=== PATIENT | female | born 1965 | race Caucasian/White ===

== ENCOUNTER 2023-03-25 12:23 | Inpatient (IN) | payer OTHER ==
[~2023-03-25] VITALS: Ht 177.8 cm; Wt 95.5 kg
[2023-03-25] MEDS ORDERED: iohexol 350MG/ML 100ml bottle IV ONE (12:49)
[2023-03-25 13:02] LABS: BASOPHILS % (AUTO) 0.6 % (0-1); EOSINOPHILS # (AUTO) 0.1 X10'3 (0-0.9); EOSINOPHILS % (AUTO) 1.4 % (0-6); HEMATOCRIT 41.6 % (35.0-45.0); HEMOGLOBIN 13.7 g/dl (12.0-16.0); LYMPHOCYTES % (AUTO) 31.5 % (21-51); MEAN CORPUSCULAR HEMOGLOBIN 28.8 PG (27.0-31.0); MEAN CORPUSCULAR HGB CONC 32.9 g/dL (33.0-36.5); MEAN CORPUSCULAR VOLUME 87.5 FL (78-98); MEAN PLATELET VOLUME 7.5 FL (7.4-10.4); MONOCYTES # (AUTO) 0.3 X10'3 (0-0.9); MONOCYTES % (AUTO) 4.7 % (2-12); NEUTROPHILS # (AUTO) 3.9 X10'3 (1.8-7.7); NEUTROPHILS % (AUTO) 61.8 % (42-75); PLATELET COUNT 277 X10'3 (140-440); RED BLOOD COUNT 4.75 X10'6 (4.20-5.60); WHITE BLOOD COUNT 6.3 X10'3 (4.5-11.0)
[2023-03-25 13:15] LABS: ALANINE AMINOTRANSFERASE 21 U/L (12-78); ALKALINE PHOSPHATASE 121 IU/L (46-116); ANION GAP 6 (8-16); ASPARTATE AMINO TRANSFERASE 13 U/L (10-37); BILIRUBIN,TOTAL 0.3 MG/DL (0.1-1.0); BLOOD UREA NITROGEN 14 MG/DL (7-18); BUN/CREATININE RATIO 20.6 (10.0-20.0); CHLORIDE 104 MMOL/L (99-107); CREATININE 0.68 MG/DL (0.40-0.90); GLUCOSE 117 MG/DL (70-104); SODIUM 137 MMOL/L (135-145); TOTAL CARBON DIOXIDE 27.5 MMOL/L (24-32); eCRCL 98 ML/MIN; eGFR 89 ML/MIN
[2023-03-25 13:19] LABS: APTT 30 SECONDS (22-32); PROTHROMBIN TIME 10.7 SECONDS (9.0-12.0)
[2023-03-25] MEDS ORDERED: aspirin 81mg tab.chew PO ONE (13:20)
[2023-03-25 13:21] LABS: PRO BRAIN NATRIURETIC PEPTIDE 140 PG/ML (0-125)
[2023-03-25] MEDS ORDERED: THY60T PO (13:45)
[2023-03-25] MEDS ORDERED: LIOT25TA12 PO (13:45)
[2023-03-25] MEDS ORDERED: CITA20TA28 PO (13:45)
[2023-03-25] MEDS ORDERED: potassium Cl 40MEQ/1/2NS 520ml 520 ML IV PRN (15:30)
[2023-03-25] MEDS ORDERED: acetaminophen 325mg tablet PO PRN ×2 (15:30)
[2023-03-25] MEDS ORDERED: mag hydrox/Alum hydrox/simeth 30ml oral suspension PO PRN (15:30)
[2023-03-25] MEDS ORDERED: magnesium 2GM in 50ml NS 50 ML IV PRN (15:30)
[2023-03-25] MEDS ORDERED: magnesium Cl slow-release 64mg tablet PO PRN (15:30)
[2023-03-25] MEDS ORDERED: magnesium hydroxide 30ml (MOM) UD suspension PO PRN (15:30)
[2023-03-25] MEDS ORDERED: magnesium 4gm in 100ml NS 100 ML IV PRN (15:30)
[2023-03-25] MEDS ORDERED: HYDROcodone/acetaminophen 5mg/325mg tablet PO PRN (15:30)
[2023-03-25] MEDS ORDERED: morphine 2 MG/ML inj. syringe IV PRN ×2 (15:30)
[2023-03-25] MEDS ORDERED: HYDROcodone/acetaminophen 10/325mg tab PO PRN (15:30)
[2023-03-25] MEDS ORDERED: ondansetron/PF 4mg/2ml inj IV PRN (15:30)
[2023-03-25] MEDS ORDERED: potassium Cl 20 mEq SR tablet PO PRN ×2 (15:30)
[2023-03-25] MEDS ORDERED: clopidogrel 300mg tablet PO ONE ×2 (15:55→16:35)
[2023-03-25] MEDS ORDERED: LIOT5TAB10 (16:41)
[2023-03-25] MEDS ORDERED: atorvastatin 20mg tablet PO ONE (18:15)
[2023-03-25] MEDS: atorvastatin 20mg tablet PO SCH (18:16)
[2023-03-25] MEDS: thyroid, pork 30mg tablet PO SCH (20:00)
[2023-03-25] MEDS ORDERED: enoxaparin 40mg/0.4ml syringe SQ SCH (20:00)
[2023-03-25] MEDS: docusate sod 100mg capsule PO SCH (20:00)
[2023-03-25] MEDS: K and/or MAG REPLACEMENT MC SCH (20:00)
[2023-03-26 05:00] LABS: BASOPHILS # (AUTO) 0.1 X10'3 (0-0.2); BASOPHILS % (AUTO) 1.1 % (0-1); EOSINOPHILS # (AUTO) 0.1 X10'3 (0-0.9); EOSINOPHILS % (AUTO) 1.8 % (0-6); HEMATOCRIT 39.2 % (35.0-45.0); HEMOGLOBIN 13.1 g/dl (12.0-16.0); LYMPHOCYTES # (AUTO) 2.1 X10'3 (1.1-4.8); LYMPHOCYTES % (AUTO) 35.2 % (21-51); MEAN CORPUSCULAR HEMOGLOBIN 29.1 PG (27.0-31.0); MEAN CORPUSCULAR HGB CONC 33.5 g/dL (33.0-36.5); MEAN CORPUSCULAR VOLUME 86.9 FL (78-98); MEAN PLATELET VOLUME 7.1 FL (7.4-10.4); MONOCYTES # (AUTO) 0.3 X10'3 (0-0.9); MONOCYTES % (AUTO) 5.3 % (2-12); NEUTROPHILS # (AUTO) 3.4 X10'3 (1.8-7.7); NEUTROPHILS % (AUTO) 56.6 % (42-75); PLATELET COUNT 234 X10'3 (140-440); RED BLOOD COUNT 4.51 X10'6 (4.20-5.60)
[2023-03-26 05:26] LABS: PROTHROMBIN TIME 38.8 SECONDS (9.0-12.0)
[2023-03-26 05:27] LABS: HEMOGLOBIN A1C 5.4 % (4.5-6.2)
[2023-03-26 05:30] LABS: ALANINE AMINOTRANSFERASE 16 U/L (12-78); ALBUMIN 3.5 G/DL (3.4-5.0); ALBUMIN/GLOBULIN RATIO 0.9 (1.1-1.5); ALKALINE PHOSPHATASE 111 IU/L (46-116); ANION GAP 11 (8-16); ASPARTATE AMINO TRANSFERASE 17 U/L (10-37); BILIRUBIN,TOTAL 0.4 MG/DL (0.1-1.0); BLOOD UREA NITROGEN 13 MG/DL (7-18); BUN/CREATININE RATIO 21.3 (10.0-20.0); CHLORIDE 106 MMOL/L (99-107); CREATININE 0.61 MG/DL (0.40-0.90); FREE T4 (FREE THYROXINE) 0.46 NG/DL (0.73-1.40); GLUCOSE 104 MG/DL (70-104); MAGNESIUM 2.3 MG/DL (1.5-2.4); PHOSPHORUS 4.2 MG/DL (2.3-4.5); POTASSIUM 4.2 MMOL/L (3.5-5.1); SODIUM 140 MMOL/L (135-145); THYROID STIMULATING HORMONE 2.14 ulU/ml (0.34-4.50); TOTAL CARBON DIOXIDE 22.6 MMOL/L (24-32); TOTAL PROTEIN 7.2 G/DL (6.4-8.2); eCRCL 109 ML/MIN; eGFR > 90 ML/MIN
[2023-03-26 06:44] LABS: INR 3.9 INR
[2023-03-26 07:30] VITALS: BP 155/62; PULSE 53; RESP 16; TEMP 98.2; O2SAT 95
[2023-03-26] MEDS: thyroid, pork 30mg tablet PO SCH (07:38)
[2023-03-26] MEDS: atorvastatin 20mg tablet PO SCH (07:38)
[2023-03-26 07:55] VITALS: RESP 16; O2SAT 95
[2023-03-26] MEDS: K and/or MAG REPLACEMENT MC SCH (08:00)
[2023-03-26] MEDS ORDERED: aspirin 81mg, enteric-coated 1 TAB TABLET.DR PO SCH (08:00)
[2023-03-26] MEDS ORDERED: LIOthyronine 25mcg tablet PO SCH (08:00)
[2023-03-26] MEDS: docusate sod 100mg capsule PO SCH (08:00)
[2023-03-26] MEDS ORDERED: clopidogrel 75mg tablet PO SCH (08:00)
[2023-03-26] MEDS ORDERED: citalopram 20mg tablet PO SCH (08:00)
[2023-03-26] MEDS ORDERED: liothyronine sod 5mcg tablet PO SCH (08:00)
[2023-03-26 11:26] LABS: CHOL/HDL RATIO 3.2 (0.00-4.99); CHOLESTEROL 250 MG/DL (0-200); HDL CHOLESTEROL 78 MG/DL (35-60); LDL CHOLESTEROL 136 MG/DL (50-100); TRIGLYCERIDES 62 MG/DL (20-135)
[2023-03-26 11:32] VITALS: BP 143/60; PULSE 64; RESP 17; TEMP 98.5; O2SAT 94
[2023-03-26] MEDS ORDERED: LISI5TAB22 PO (12:08)
[2023-03-26] MEDS ORDERED: CLOP75TA34 PO (12:08)
[2023-03-26] MEDS ORDERED: ATOR20TA66 PO (12:08)
[2023-03-26] MEDS ORDERED: ASPI-1071 PO (12:08)
[2023-03-26] MEDS ORDERED: GADOTERATE MEGLUMINE 7.5 MMOL/15 ML VIAL IV ONE (18:18)
== END 2023-03-26 15:07 | disposition home or self-care (01) | DRG 125 ==
LOC: ER 12:26 → ED HOLD 15:34 → PCU 3S 03-26 07:16
PROVIDERS: ADMIT Internal Medicine; ATTEND Internal Medicine
PROC: B3251ZZ Computerized Tomography (CT Scan) of Bilateral Common Carotid Arteries using Low Osmolar Contrast (ICD-10-PCS; principal; 2023-03-25)
PROC: B32G1ZZ Computerized Tomography (CT Scan) of Bilateral Vertebral Arteries using Low Osmolar Contrast (ICD-10-PCS; 2023-03-25)
PROC: B32R1ZZ Computerized Tomography (CT Scan) of Intracranial Arteries using Low Osmolar Contrast (ICD-10-PCS; 2023-03-25)
PROC: B3281ZZ Computerized Tomography (CT Scan) of Bilateral Internal Carotid Arteries using Low Osmolar Contrast (ICD-10-PCS; 2023-03-25)
DX: H53.8 Other visual disturbances (principal); I10 Essential (primary) hypertension; Z79.82 Long term (current) use of aspirin; Z79.899 Other long term (current) drug therapy; Z79.01 Long term (current) use of anticoagulants; Z85.850 Personal history of malignant neoplasm of thyroid; Z92.3 Personal history of irradiation
CPT/HCPCS: 36415; 70450; 70496; 70498; 70553; 71045; 80053; 80061; 82948; 83036; 83735; 83880; 84100; 84439; 84443; 84484; 85025; 85610; 85651; 85730; 92508; 92616; 93005; 93306; 99285; A9575; G0378; J1650; J3490; Q9967

== ENCOUNTER 2023-05-04 08:27 | Inpatient (IN) | payer OTHER ==
[~2023-05-04] VITALS: Ht 175.3 cm; Wt 90.9 kg
[~2023-05-04 08:27] MED LIST: ASPI-1071 PO; ATOR20TA66 PO; CITA20TA28 PO; CLOP75TA34 PO; LIOT5TAB10; LISI5TAB22 PO; THY60T PO
[2023-05-04 08:48] LABS: BASOPHILS # (AUTO) 0.1 X10'3 (0-0.2); EOSINOPHILS # (AUTO) 0.1 X10'3 (0-0.9); EOSINOPHILS % (AUTO) 2.4 % (0-6); HEMATOCRIT 41.1 % (35.0-45.0); HEMOGLOBIN 13.6 g/dl (12.0-16.0); LYMPHOCYTES # (AUTO) 1.7 X10'3 (1.1-4.8); LYMPHOCYTES % (AUTO) 28.3 % (21-51); MEAN CORPUSCULAR HEMOGLOBIN 29.1 PG (27.0-31.0); MEAN CORPUSCULAR VOLUME 88.1 FL (78-98); MEAN PLATELET VOLUME 7.1 FL (7.4-10.4); MONOCYTES # (AUTO) 0.3 X10'3 (0-0.9); MONOCYTES % (AUTO) 5.1 % (2-12); NEUTROPHILS # (AUTO) 3.9 X10'3 (1.8-7.7); NEUTROPHILS % (AUTO) 63.2 % (42-75); PLATELET COUNT 281 X10'3 (140-440); RED BLOOD COUNT 4.66 X10'6 (4.20-5.60); RED CELL DISTRIBUTION WIDTH 13.6 % (11.5-14.5); WHITE BLOOD COUNT 6.1 X10'3 (4.5-11.0)
[2023-05-04 09:08] LABS: ALANINE AMINOTRANSFERASE 21 U/L (12-78); ALBUMIN 4.1 G/DL (3.4-5.0); ALBUMIN/GLOBULIN RATIO 1.1 (1.1-1.5); ALKALINE PHOSPHATASE 131 IU/L (46-116); ANION GAP 11 (8-16); ASPARTATE AMINO TRANSFERASE 18 U/L (10-37); BILIRUBIN,TOTAL 0.4 MG/DL (0.1-1.0); BLOOD UREA NITROGEN 18 MG/DL (7-18); CALCIUM 8.9 MG/DL (8.5-10.1); CHLORIDE 106 MMOL/L (99-107); CREATININE 0.62 MG/DL (0.40-0.90); GLUCOSE 83 MG/DL (70-104); SODIUM 144 MMOL/L (135-145); TOTAL CARBON DIOXIDE 27.1 MMOL/L (24-32); TOTAL PROTEIN 7.9 G/DL (6.4-8.2); eCRCL 103 ML/MIN; eGFR > 90 ML/MIN
[2023-05-04 09:12] LABS: PRO BRAIN NATRIURETIC PEPTIDE 178 PG/ML (0-125)
[2023-05-04 10:20] LABS: MAGNESIUM 1.9 MG/DL (1.5-2.4)
[2023-05-04] MEDS: normal saline 1000ml 1,000 ML IV ONE (10:53)
[2023-05-04] MEDS ORDERED: magnesium 2GM in 50ml NS 50 ML IV PRN (12:05)
[2023-05-04] MEDS ORDERED: magnesium hydroxide 30ml (MOM) UD suspension PO PRN (12:05)
[2023-05-04] MEDS ORDERED: magnesium 4gm in 100ml NS 100 ML IV PRN (12:05)
[2023-05-04] MEDS ORDERED: ondansetron 4mg rapidly disintigrating tab PO PRN (12:05)
[2023-05-04] MEDS ORDERED: HYDROcodone/acetaminophen 5mg/325mg tablet PO PRN (12:05)
[2023-05-04] MEDS ORDERED: acetaminophen 325mg tablet PO PRN ×2 (12:05)
[2023-05-04] MEDS ORDERED: potassium Cl 40MEQ/1/2NS 520ml 520 ML IV PRN (12:05)
[2023-05-04] MEDS ORDERED: ondansetron/PF 4mg/2ml inj IV PRN (12:05)
[2023-05-04] MEDS ORDERED: potassium Cl 20 mEq SR tablet PO PRN ×2 (12:05)
[2023-05-04] MEDS ORDERED: mag hydrox/Alum hydrox/simeth 30ml oral suspension PO PRN (12:05)
[2023-05-04] MEDS ORDERED: magnesium Cl slow-release 64mg tablet PO PRN (12:05)
[2023-05-04] MEDS ORDERED: HYDROcodone/acetaminophen 10/325mg tab PO PRN (12:05)
[2023-05-04] MEDS: normal saline 1000ml 1,000 ML IV SCH (13:42)
[2023-05-04] MEDS: aspirin 81mg tab.chew PO ONE (13:42)
[2023-05-04 18:30] VITALS: BP 153/59; PULSE 55; O2SAT 97
[2023-05-04] MEDS: docusate sod 100mg capsule PO SCH (20:00)
[2023-05-04] MEDS: K and/or MAG REPLACEMENT MC SCH (20:00)
[2023-05-04 22:00] VITALS: BP 132/61; PULSE 57; RESP 16; TEMP 98.1; O2SAT 98
[2023-05-05] VITALS (7 sets, daily range): BP systolic 104–145; BP diastolic 48–80; PULSE 55–76; RESP 14–16; TEMP 98.3–98.4; O2SAT 94–97
[2023-05-05 07:57] LABS: BASOPHILS # (AUTO) 0.1 X10'3 (0-0.2); BASOPHILS % (AUTO) 1.1 % (0-1); EOSINOPHILS # (AUTO) 0.1 X10'3 (0-0.9); EOSINOPHILS % (AUTO) 2.8 % (0-6); HEMATOCRIT 37.2 % (35.0-45.0); HEMOGLOBIN 12.3 g/dl (12.0-16.0); LYMPHOCYTES # (AUTO) 1.6 X10'3 (1.1-4.8); LYMPHOCYTES % (AUTO) 35.3 % (21-51); MEAN CORPUSCULAR HEMOGLOBIN 29.2 PG (27.0-31.0); MEAN CORPUSCULAR HGB CONC 32.9 g/dL (33.0-36.5); MEAN CORPUSCULAR VOLUME 88.6 FL (78-98); MEAN PLATELET VOLUME 7.4 FL (7.4-10.4); MONOCYTES # (AUTO) 0.2 X10'3 (0-0.9); MONOCYTES % (AUTO) 5.3 % (2-12); NEUTROPHILS # (AUTO) 2.5 X10'3 (1.8-7.7); NEUTROPHILS % (AUTO) 55.5 % (42-75); PLATELET COUNT 231 X10'3 (140-440); RED CELL DISTRIBUTION WIDTH 13.7 % (11.5-14.5); WHITE BLOOD COUNT 4.6 X10'3 (4.5-11.0)
[2023-05-05 08:19] LABS: ALANINE AMINOTRANSFERASE 19 U/L (12-78); ALBUMIN 3.1 G/DL (3.4-5.0); ALBUMIN/GLOBULIN RATIO 0.9 (1.1-1.5); ALKALINE PHOSPHATASE 107 IU/L (46-116); ANION GAP 9 (8-16); ASPARTATE AMINO TRANSFERASE 20 U/L (10-37); BILIRUBIN,TOTAL 0.4 MG/DL (0.1-1.0); BLOOD UREA NITROGEN 11 MG/DL (7-18); BUN/CREATININE RATIO 17.7 (10.0-20.0); CALCIUM 8.1 MG/DL (8.5-10.1); CHLORIDE 110 MMOL/L (99-107); CREATININE 0.62 MG/DL (0.40-0.90); GLUCOSE 95 MG/DL (70-104); MAGNESIUM 1.9 MG/DL (1.5-2.4); POTASSIUM 4.1 MMOL/L (3.5-5.1); SODIUM 146 MMOL/L (135-145); TOTAL CARBON DIOXIDE 27.2 MMOL/L (24-32); TOTAL PROTEIN 6.5 G/DL (6.4-8.2); eCRCL 103 ML/MIN; eGFR > 90 ML/MIN
[2023-05-05] MEDS: atorvastatin 20mg tablet PO SCH (08:30)
[2023-05-05] MEDS ORDERED: aspirin 81mg tab.chew PO SCH (08:30)
[2023-05-05] MEDS: thyroid, pork 30mg tablet PO SCH (08:31)
[2023-05-05] MEDS: liothyronine sod 5mcg tablet PO SCH (08:31)
[2023-05-05] MEDS: aspirin 81mg, enteric-coated 1 TAB TABLET.DR PO SCH (08:32)
[2023-05-05] MEDS: citalopram 20mg tablet PO SCH (08:32)
[2023-05-05] MEDS ORDERED: GADOTERATE MEGLUMINE 7.5 MMOL/15 ML VIAL IV ONE (16:29)
== END 2023-05-05 19:00 | disposition home or self-care (01) | DRG 312 ==
LOC: ER 08:28 → ED HOLD 12:13 → ORTHO 4S 18:03
PROVIDERS: ADMIT Family Medicine; ATTEND Family Medicine
PROC: 4A00X4Z Measurement of Central Nervous Electrical Activity, External Approach (ICD-10-PCS; principal; 2023-05-05)
DX: R55 Syncope and collapse (principal); E89.0 Postprocedural hypothyroidism; E78.00 Pure hypercholesterolemia, unspecified; F32.A Depression, unspecified; I10 Essential (primary) hypertension; Z86.73 Personal history of transient ischemic attack (TIA), and cerebral infarction without residual deficits; Z85.850 Personal history of malignant neoplasm of thyroid; Z79.899 Other long term (current) drug therapy; Z79.82 Long term (current) use of aspirin; Z82.49 Family history of ischemic heart disease and other diseases of the circulatory system; Z82.3 Family history of stroke
CPT/HCPCS: 36415; 70450; 70544; 70551; 70552; 71045; 80053; 82948; 83735; 83880; 84484; 85025; 87081; 92508; 92616; 93005; 95816; 99285; A9575; G0378; J7030